=== PATIENT | male | born 2000 | race Caucasian/White ===

== ENCOUNTER 2021-06-05 15:41 | Emergency (ER) | payer BC ==
[~2021-06-05] VITALS: Ht 175 cm; Wt 105.9 kg
--- NOTE | 2021-06-05 16:07 | ED General ---
General Chief Complaint: General Problems/Pain Stated Complaint: FEVER, DIZZINESS, DIARRHEA, SWOLLEN FACE Source of Information: Patient Exam Limitations: No Limitations History of Present Illness Date Seen by Provider: Jun 05, 2021 Time Seen by Provider: 15:46 Initial Comments 20-year-old male otherwise healthy coming in due to 1 week of general malaise with 2 days of fever, diarrhea that is nonbloody, and nausea without vomiting. Denies any cough, chest pain, abdominal pain, or any other concerns. He went to the [facility] [place] and had COVID and flu testing done. The flu test was negative and the COVID test is pending. He noticed some swelling around his left eyelid and that is why he wanted to be seen again. He is otherwise denying any other acute complaints. Did take ibuprofen about an hour ago Allergies and Home Medications Allergies Coded Allergies: No Known Drug Allergies (Unverified , 06/05/21) Patient Home Medication List Home Medication List Reviewed: Yes Ondansetron (Ondansetron Odt) 4 Mg Tab.rapdis, 4 MG PO Q6H PRN for NAUSEA/VOMITING-1ST LINE Prescribed by: ALYSON STEELE on 06/05/21 0178 Review of Systems Review of Systems Constitutional: chills, fever EENTM: No blurred vision Respiratory: No cough, No short of breath Cardiovascular: No chest pain Gastrointestinal: No abdominal pain; diarrhea, nausea; No vomiting Genitourinary: no symptoms reported Musculoskeletal: no symptoms reported Skin: no symptoms reported Psychiatric/Neurological: No Symptoms Reported Hematologic/Lymphatic: No Symptoms Reported Immunological/Allergic: no symptoms reported All Other Systems Reviewed Negative Unless Noted: Yes Past Galuyrt-Zpqwsh-Ssbhav Hx Patient Social History Tobacco Use?: No Substance use?: No Alcohol Use?: No Past Medical History Surgeries: Yes (cyst removal wrist, ear tubes) Physical Exam Vital Signs Vital Signs - First Documented 06/05/21 15:52 Temp 36.9 Pulse 100 Resp 18 B/P (MAP) 141/100 (114) Pulse Ox 100 O2 Delivery Room Air Capillary Refill : Height, Weight, BMI Height: '" Weight: lbs. oz. kg; BMI Method: General Appearance: No Apparent Distress, WD/WN Eyes: Bilateral Eye Normal Inspection, Bilateral Eye PERRL, Bilateral Eye EOMI (no pain with EOM, visual silver normal) HEENT: PERRL/EOMI, TMs Normal, Normal ENT Inspection, Pharynx Normal, Other (Periorbital edema around the left eye without any proptosis, no pain with extraocular movements, conjunctive are normal appearing) Neck: Full Range of Motion, Normal Inspection, Non Tender, Supple Respiratory: Chest Non Tender, Lungs Clear, Normal Breath Sounds, No Accessory Muscle Use, No Respiratory Distress Cardiovascular: Regular Rate, Rhythm, No Edema, Normal Peripheral Pulses Gastrointestinal: Normal Bowel Sounds, Non Tender, Soft; No Distended, No Guarding Back: Normal Inspection, No CVA Tenderness, No Vertebral Tenderness Extremity: Normal Capillary Refill, Normal Inspection, Normal Range of Motion, Non Tender, No Calf Tenderness, No Pedal Edema Neurologic/Psychiatric: Alert, No Motor/Sensory Deficits, Normal Mood/Affect Skin: Normal Color, Warm/Dry Lymphatic: No Adenopathy Progress/Results/Core Measures Suspected Sepsis SIRS Temperature: Pulse: Respiratory Rate: Blood Pressure / Mean: Results/Orders Vital Signs/I&O 06/05/21 15:52 Temp 36.9 Pulse 100 Resp 18 B/P (MAP) 141/100 (114) Pulse Ox 100 O2 Delivery Room Air Capillary Refill : Progress Note : Progress Note 20-year-old male with above history coming in with flulike symptoms and now some periorbital edema around his left eye. ABCs intact and vitals were stable on presentation. He is afebrile here. Lungs clear and he is satting 100% on room air. Flu and COVID test done by [facility] [place] and he should have those results tomorrow so we will not repeat the testing here. The periorbital edema appears allergic versus viral in nature. He does not appear to have cellulitis based on my exam either preseptal or septal. There is no redness associated with this. We will give him a dose of Decadron for the swelling that I am presuming is allergic as well as some cetirizine prescription. Given some Zofran for his nausea. I believe he is stable for discharge with outpatient follow-up. He was sent home with strict return precautions Departure Impression Primary Impression: Person under investigation for COVID-19 Additional Impressions: Flu-like symptoms Periorbital edema of left eye Disposition: HOME, SELF-CARE Condition: Stable Departure-Patient Inst. Decision time for Depature: 16:10 Patient Instructions: COVID-19 Overview Add. Discharge Instructions: Please follow-up with the [facility] regarding your COVID test. I sent nausea medicine to your pharmacy. Take 600 mg of ibuprofen every 6 hours for fever. If you continue to have fever or body aches you can take 1000 mg of Tylenol every 6-8 hours, but do not drink alcohol with this. The swelling around her eye looks to be either allergic or viral in nature. If it begins getting significantly more red and spreading across your face or you begin having severe eye pain then I would want you to be reevaluated by a Doctor. Scripts Cetirizine HCl (Cetirizine HCl) 10 Mg Tablet 10 MG PO DAILY for 14 Days, #14 TAB Prov: ALYSON STEELE MD 06/05/21 Ondansetron (Ondansetron Odt) 4 Mg Tab.rapdis 4 MG PO Q6H PRN for NAUSEA/VOMITING-1ST LINE for 5 Days, #20 TAB Prov: ALYSON STEELE MD 06/05/21 Work/School Note: School/Childcare Release Date Seen in the Emergency Department: Jun 05, 2021 Time Dismissed from Emergency Department: 16:08 Return to School: Jun 07, 2021 Restrictions: Return-No Fever (24hrs), Return-No Vomiting(24hrs) ALYSON STEELE MD Jun 05, 2021 16:07
[2021-06-05] MEDS ORDERED: ONDA4TAB11 PO (16:08)
[2021-06-05] MEDS ORDERED: CETI10TA17 PO (16:10)
[2021-06-05] MEDS ORDERED: ONDANSETRON 4 MG (ZOFRAN) ORAL DISSOLVE TAB PO ONE (16:15)
[2021-06-05 16:22] VITALS: BP 125/87
== END 2021-06-05 16:23 | disposition home or self-care (01) ==
LOC: ER 15:45
DX: J11.1 Influenza due to unidentified influenza virus with other respiratory manifestations (principal); H05.222 Edema of left orbit
CPT/HCPCS: 99281